=== PATIENT | female | born 1965 | race American Indian/Alaskan Native ===

== ENCOUNTER 2017-04-11 07:25 | Outpatient (CLI) | payer BC ==
--- NOTE | 2017-04-11 09:48 | Mammography Report ---
Bilateral mammogram: Compared to 01/10/16. CAD study utilized. Findings: Heterogeneous breast parenchyma bilaterally. No mass or microcalcification. Normal axilla. Benign calcifications left breast. Impression: Benign findings. Annual followup recommended. BI-RADS CATEGORY: 2 = Benign ACR BI-RADS MAMMOGRAPHIC CODES: 0 = Needs additional imaging evaluation; 1 = Negative; 2 = Benign; 3 = Probably benign; 4 = Suspicious; 5 = Malignant; 6 = Known biopsy-proven malignancy COMMENT: 1. Dense breast tissue, i.e., adenosis, fibrocystic changes, etc., may obscure an underlying neoplasm. 2. Approximately 10% of cancers are not detected with mammography. 3. A negative mammography report should not delay biopsy if a clinically suspicious mass is present. COMMENT: Patient follow-up letters are generated in [employer].
== END 2017-04-11 07:26 | disposition home or self-care (01) ==
LOC: MAMMO 07:25
PROVIDERS: ATTEND Obstetrics & Gynecology
DX: Z12.31 Encounter for screening mammogram for malignant neoplasm of breast (principal)
CPT/HCPCS: 77067; G0202

== ENCOUNTER 2017-07-08 21:29 | Emergency (ER) | payer BC ==
[2017-07-08] MEDS ORDERED: TYLENOL ONE (23:10)
[2017-07-08] MEDS ORDERED: TYLENOL PO ONE (23:11)
[2017-07-09 06:42] VITALS: BP 153/87
[2017-07-09] MEDS ORDERED: VALIUM PO ONE (07:54)
[2017-07-09] MEDS ORDERED: TORADOL IM ONE (07:54)
--- NOTE | 2017-07-09 07:55 | Emergency Department Report ---
ED Back Pain/Injury HPI - General Chief Complaint: Back Pain/Injury Stated Complaint: BACK PAIN Time Seen by Provider: 07/09/17 07:39 Source: patient Limitations: No Limitations - History of Present Illness Initial Comments: 51 F p/w co 1 week of persistent left sided dull achy neck pain. Deneis any fall direct trauma, fever, chills, paraesthesias. Denies any associated CP, SOB , palpitation,s nausea, vomiting. Pt states pain occasionally shoots through left shoulder specifically when she bends her neck laterally.Pt visibly ranging b/l upper extremities during exam. no releif with tylenol per pt. pt denies any episodes of paralysis MD Complaint: back pain Onset/Timin -: week(s) Place: home, work Severity: moderate Severity scale (0 -10): 6 Quality: dull, aching Consistency: intermittent Improves With: movement Associated Symptoms: denies other symptoms - Related Data Previous Rx's Medication Instructions Recorded Last Taken Type Cyclobenzaprine [Flexeril] 10 mg PO TID PRN #14 tablet 07/09/17 Unknown Rx Naproxen 500 mg PO BID PRN #30 tablet 07/09/17 Unknown Rx Allergies Allergy/AdvReac Type Severity Reaction Status Date / Time No Known Allergies Allergy Verified 07/08/17 21:59 ED Review of Systems ROS: Stated complaint: BACK PAIN Other details as noted in HPI Constitutional: denies: chills, fever Eyes: denies: eye pain, eye discharge, vision change ENT: denies: ear pain, throat pain Respiratory: denies: cough, shortness of breath, wheezing Cardiovascular: denies: chest pain, palpitations Endocrine: no symptoms reported Gastrointestinal: denies: abdominal pain, nausea, diarrhea Genitourinary: denies: urgency, dysuria, discharge Musculoskeletal: as per HPI. denies: back pain, joint swelling, arthralgia Skin: denies: rash, lesions Neurological: denies: headache, weakness, paresthesias Psychiatric: denies: anxiety, depression Hematological/Lymphatic: denies: easy bleeding, easy bruising ED Past Medical Hx - Past Medical History Additional medical history: MVP - Surgical History Past Surgical History?: No - Social History Smoking Status: Never Smoker Substance Use Type: Alcohol - Medications Home Medications: Home Medications Medication Instructions Recorded Confirmed Last Taken Type Cyclobenzaprine [Flexeril] 10 mg PO TID PRN #14 tablet 07/09/17 Unknown Rx Naproxen 500 mg PO BID PRN #30 tablet 07/09/17 Unknown Rx ED Physical Exam - General Limitations: No Limitations General appearance: alert, in no apparent distress - Head Head exam: Present: atraumatic, normocephalic - Eye Eye exam: Present: normal appearance, PERRL, EOMI - ENT ENT exam: Present: mucous membranes moist - Neck Neck exam: Present: normal inspection - Respiratory Respiratory exam: Present: normal lung sounds bilaterally. Absent: respiratory distress - Cardiovascular Cardiovascular Exam: Present: regular rate, normal rhythm. Absent: systolic murmur, diastolic murmur, rubs, gallop - GI/Abdominal GI/Abdominal exam: Present: soft, normal bowel sounds - Extremities Exam Extremities exam: Present: normal inspection, full ROM - Expanded Upper Extremity Exam Left Shoulder Exam: Present: normal inspection, full ROM Upper Arm exam: Present: normal inspection, full ROM Elbow exam: Present: normal inspection, full ROM Forearm Wrist exam: Present: normal inspection, full ROM Hand Wrist exam: Present: normal inspection, full ROM Neuro motor exam: Present: wrist extension intact, thumb opposition intact, thumb IP flexion intact, thumb adduction intact, fingers 2-5 abduction intact, other Neurosensory exam: Present: 2-point discrimination, radial nerve intact, ulnar nerve intact, median nerve intact Vascular: Present: normal capillary refill, radial pulse, brachial pulse, ulnar pulse - Back Exam Back exam: Present: normal inspection, full ROM - Neurological Exam Neurological exam: Present: alert, oriented X3, CN II-XII intact, normal gait - Expanded Neurological Exam Expanded Patient oriented to: Present: person, place, time Cranial nerves: EOM's Intact: Normal, Nystagmus: Normal Cerebellar function: Finger to Nose: Normal, Heel to [place]: Normal, Romberg: Normal Sensory exam: Upper Extremity Light Touch: Normal, Lower Extremity Light Touch: Normal Motor strength exam: RUE: 5, LUE: 5, RLE: 5, LLE: 5 DTR: tricep (R): 3+, tricep (L): 3+ Best Eye Response ([place]): (4) open spontaneously Best Motor Response ([place]): (6) obeys commands Best Verbal Response ([place]): (5) oriented [place] Total: 15 - Psychiatric Psychiatric exam: Present: normal affect, normal mood - Skin Skin exam: Present: warm, dry, intact, normal color. Absent: rash ED Course Vital Signs 07/08/17 07/08/17 07/09/17 21:55 21:59 04:30 Temperature 98.5 F 98.5 F 98.2 F Pulse Rate 99 H 104 H 83 Respiratory 18 18 16 Rate Blood Pressure 159/100 159/100 156/103 Blood Pressure [Left] O2 Sat by Pulse 98 98 100 Oximetry 07/09/17 06:22 Temperature 97.5 F L Pulse Rate 89 Respiratory 16 Rate Blood Pressure Blood Pressure 153/87 [Left] O2 Sat by Pulse 99 Oximetry ED Medical Decision Making - Medical Decision Making A/P: Cervical radiculopathy, musculoskeletal neck pain 1-patient feels some relief with her medicines 2-referred to primary care and orthopedics 3-I explained to the patient her CT findings of degenerative disc disease and her C-spine and how it is related to shoulder pain and intermittent neck pain. 4-short course of naproxen and Flexeril when necessary 5-patient has no clinical signs of cord impingement range of motion fully intact bilateral upper and lower extremities. Critical care attestation.: If time is entered above; I have spent that time in minutes in the direct care of this critically ill patient, excluding procedure time. ED Disposition Clinical Impression: Cervical radiculopathy Shoulder pain, left Qualifiers: Chronicity: acute Qualified Code(s): M25.512 - Pain in left shoulder Disposition: - TO HOME OR SELFCARE Is pt being admited?: No Does the pt Need Aspirin: No Condition: Stable Instructions: Cervical Radiculopathy (ED), Musculoskeletal Pain (ED) Prescriptions: Cyclobenzaprine [Flexeril] 10 mg PO TID PRN #14 tablet PRN Reason: Muscle Spasm Naproxen 500 mg PO BID PRN #30 tablet PRN Reason: Pain Referrals: GALINA KING MD [Staff Physician] - 3-5 Days MERCED JUAREZ MD [Staff Physician] - 3-5 Days [facility] [Provider Group] - 3-5 Days Forms: Work/School Release Form(ED) Time of Disposition: 10:28
--- NOTE | 2017-07-09 08:30 | XRay Report ---
LEFT SHOULDER, 3 views: History: Left shoulder pain. Routine views demonstrate normal bony and soft tissue structures with normal joint alignment of the shoulder. IMPRESSION: Normal study.
--- NOTE | 2017-07-09 08:57 | Cat Scan Report ---
CT SCAN OF THE CERVICAL SPINE: HISTORY: Cervical radiculopathy to left shoulder. TECHNIQUE: Contiguous 1.25 mm axial images of the cervical spine were obtained. Sagittal and coronal reformatted images. FINDINGS: There is normal alignment of the cervical spine. The body, pedicles and posterior ligaments appear normal. No evidence of fracture or subluxation is seen. The spinal canal appears normal. The prevertebral soft tissues appear normal. Minimal disc space narrowing and mild anterior spurring is identified at C3-4, C4-5, C5-6 and C6-7. No neural foraminal stenosis is detected on noncontrast CT. IMPRESSION: Mild multilevel degenerative disc disease as described. No large bulging disc, central canal stenosis or high-grade neural foraminal stenosis is identified. If further evaluation is needed, MRI cervical spine without contrast or CT cervical myelogram could be obtained.
== END 2017-07-09 10:41 | disposition home or self-care (01) ==
LOC: ED 21:29
DX: M54.12 Radiculopathy, cervical region (principal); M25.512 Pain in left shoulder
CPT/HCPCS: 72125; 73030; 96372; 99284; J1885

== ENCOUNTER 2018-09-10 07:01 | Outpatient (CLI) | payer BC ==
--- NOTE | 2018-09-10 16:31 | Mammography Report ---
BILATERAL DIGITAL SCREENING MAMMOGRAM with CAD: 09/10/18 07:01:00 CLINICAL: Routine screening. COMPARISON:04/11/17 FINDINGS: The breasts are heterogeneously dense, which may obscure small masses. No mass, architectural distortion or suspicious calcifications. IMPRESSION: No mammographic evidence of malignancy. BI-RADS CATEGORY: 1 - - Negative RECOMMENDATION: Routine mammographic screening in one year. COMMENT: Patient follow-up letters are generated by our [employer] application.
== END 2018-09-10 07:02 | disposition home or self-care (01) ==
LOC: MAMMO 07:01
PROVIDERS: ATTEND Internal Medicine
DX: Z12.31 Encounter for screening mammogram for malignant neoplasm of breast (principal)
CPT/HCPCS: 77067